=== PATIENT | male | born 1985 | race Two or more races ===

== ENCOUNTER 2018-04-03 23:58 | Emergency (ER) | payer MEDICAID, OTHER ==
[~2018-04-03] VITALS: Ht 160 cm; Wt 72.6 kg
[2018-04-04 00:25] VITALS: BP 139/69
== END 2018-04-04 00:52 | disposition home or self-care (01) ==
LOC: ER 04-04
DX: Z76.0 Encounter for issue of repeat prescription (principal)
CPT/HCPCS: A4606; Z7502; Z7610

== ENCOUNTER 2018-05-04 01:48 | Emergency (ER) | payer MEDICAID, OTHER ==
[~2018-05-04] VITALS: Ht 144.8 cm; Wt 63.5 kg
[2018-05-04 01:48] VITALS: BP 122/72
== END 2018-05-04 04:21 | disposition home or self-care (01) ==
LOC: ER 01:53
DX: M25.532 Pain in left wrist (principal); M79.632 Pain in left forearm; Y04.0XXA Assault by unarmed brawl or fight, initial encounter; Y93.89 Activity, other specified; Y92.89 Other specified places as the place of occurrence of the external cause; Y99.8 Other external cause status
CPT/HCPCS: 73090; 73110; 99284; A4606; Z7610